=== PATIENT | female | born 1965 | race Caucasian/White ===

== ENCOUNTER → 2017-10-31 17:07 | Outpatient (CLI) | payer BC, SELFPAY ==
[2017-11-12 12:20] LABS: HPV Reflexed? NOT INDICATED
== END ==
PROVIDERS: Family Provider Internal Medicine; PCP Internal Medicine; Visit Provider Obstetrics & Gynecology
DX: Z12.4 Encounter for screening for malignant neoplasm of cervix (principal)
CPT/HCPCS: 88175; G0145

== ENCOUNTER 2018-06-14 06:13 | Day surgery (SDC) | payer BC, SELFPAY ==
[2018-06-14 06:53] VITALS: BP 119/91; PULSE 82; RESP 14; TEMP 36.9; O2SAT 96; BMI 33.3
--- NOTE | 2018-06-14 07:22 | PCM.HP.STD ---
Problem List (1) Screening for intestinal cancer Status: Acute History of Present Illness Date of Admission: 06/14/18 The patient is a 52 year old F who has a family history of colon cancer in her father. Her most recent colonoscopy was 5 years ago. She states that she has not personally had any polyps or masses. She denies bright red blood per rectum or melena. No change in bowel habits. Past Medical History Allergies No Known Allergies Allergy (Verified 06/14/18 06:50) Home Medications: Ambulatory Orders Medication Instructions Recorded Hydrochlorothiazide [Hctz] 25 mg PO DAILY 06/11/15 Lisinopril [Zestril] 20 mg PO DAILY 06/11/15 Cyanocobalamin [Vitamin B12] 1,000 mcg PO DAILY@0800 06/10/18 Multivitamin with Minerals 1 each PO DAILY 06/10/18 [Multiple Vitamin] Pyridoxine HCl (Vitamin B6) 250 mg PO DAILY 06/10/18 [Vitamin B-6] Smoking Status: Current every day smoker Tobacco Use: Cigarettes Review of Systems Constitutional: Denies: Anorexia HEENT: Denies: Difficulty Swallowing Cardiovascular: Denies: Chest Pain Respiratory: Denies: Cough Gastrointestinal: Denies: Abdominal Pain Endocrine: Denies: Change in Body Habitus VTE Information - Inpt Only VTE Present on Admission: No Patient Problems: Active and Suspected Problems Screening for intestinal cancer (Acute) - Physical Exam General: Alert, Oriented x3, Cooperative Neck: Supple Lungs: Clear to auscultation Cardiovascular: Regular rate, Regular Rhythm Abdomen: Bowel Sounds Present, Soft, Non Tender Extremities: No Calf Tenderness Psych/Mental Status: Normal Affect Vital Signs Temp Pulse Resp BP Pulse Ox 98.4 F 82 14 119/91 H 96 06/14/18 06:53 06/14/18 06:53 06/14/18 06:53 06/14/18 06:53 06/14/18 06:53 Oxygen Delivery Method Room Air Weight: 188 lb Body Mass Index (BMI) 33.3 Assessment/Plan All Active Problems Screening for intestinal cancer (Acute) I recommend a screening colonoscopy based upon family history. She is aware of the technique, benefits, risks and alternatives of colonoscopy with possible biopsy or polypectomy as indicated. She has had an opportunity to ask and have questions answered. She presents via open access. We will proceed as noted. Chente Hartley M.D., F.A.C.S.
[2018-06-14 07:44] VITALS: BP 105/63; BP 111/66; BP 119/91; BP 143/113; BP 143/81; PULSE 78; RESP 16; TEMP 36.8; O2SAT 100; O2SAT 97; O2SAT 98
--- NOTE | 2018-06-14 07:47 | OP.ENDO_ITS ---
Patient Name: Sabina Aguillon Procedure Date: 06/14/2018 7:20 AM Date of : 1965 Age: 52 Procedure: Colonoscopy Indications: Family history of colon cancer in a first-degree relative Providers: Chente Hartley MD Referring MD: Emily Quiroga Medicines: Midazolam 4 mg IV, Meperidine 100 mg IV Patient Profile: Last Colonoscopy: 5 years ago. Complications: No immediate complications. Procedure: Pre-Anesthesia Assessment: - Prior to the procedure, a History and Physical was performed, and patient medications and allergies were reviewed. The patient's tolerance of previous anesthesia was also reviewed. The risks and benefits of the procedure and the sedation options and risks were discussed with the patient. All questions were answered, and informed consent was obtained. Prior Anticoagulants: The patient has taken no previous anticoagulant or antiplatelet agents. ASA Grade Assessment: II - A patient with mild systemic disease. After reviewing the risks and benefits, the patient was deemed in satisfactory condition to undergo the procedure. After I obtained informed consent, the scope was passed under direct vision. Throughout the procedure, the patient's blood pressure, pulse, and oxygen saturations were monitored continuously. The pediatric colonoscope was introduced through the anus and advanced to the cecum, identified by appendiceal orifice and ileocecal valve. The colonoscopy was performed without difficulty. The patient tolerated the procedure well. The quality of the bowel preparation was good. The appendiceal orifice was photographed. Moderate Sedation: Moderate (conscious) sedation was personally administered by the endoscopist. The following parameters were monitored: oxygen saturation, heart rate, blood pressure, and response to care. Total physician intraservice time was 15 minutes. Scope In: 7:33:40 AM Scope Withdrawal Time 0 hours 6 minutes 25 seconds Scope Out: 7:43:05 AM Total Procedure Duration Time 0 hours 9 minutes 25 seconds Findings: Hemorrhoids were found on perianal exam. Multiple diverticula were found in the entire colon. The exam was otherwise without abnormality. Impression: - Hemorrhoids found on perianal exam. - Diverticulosis in the entire examined colon. - The examination was otherwise normal. - No specimens collected. Recommendation: - Discharge patient to home. - Resume previous diet. - Continue present medications. - Repeat colonoscopy in 5 years for surveillance. Procedure Code(s): --- Professional --- 75823, Colonoscopy, flexible; diagnostic, including collection of specimen(s) by brushing or washing, when performed (separate procedure) 27761, 59, Moderate sedation services provided by the same physician or other qualified health healthcare consultant performing the diagnostic or therapeutic service that the sedation supports, requiring the presence of an independent trained observer to assist in the monitoring of the patient's level of consciousness and physiological status; initial 15 minutes of intraservice time, patient age 5 years or older CPT copyright 2017 [employer]. All rights reserved. The codes documented in this report are preliminary and upon tooth inspector review may be revised to meet current compliance requirements. Chente Hartley MD 06/14/2018 7:47:32 AM This report has been signed electronically. Number of Addenda: 0 Note Initiated On: 06/14/2018 7:20 AM
[2018-06-14 07:50] VITALS: BP 101/68; BP 119/91; PULSE 75; RESP 16; O2SAT 95
[2018-06-14 07:55] VITALS: BP 103/66; BP 119/91; PULSE 75; RESP 16; O2SAT 96
[2018-06-14 07:59] VITALS: BP 106/68; BP 119/91; PULSE 73; RESP 16; TEMP 36.7; O2SAT 98
[2018-06-14 08:22] VITALS: BP 119/91
== END 2018-06-14 08:22 | disposition home or self-care (01) ==
LOC: EN 06:13 → AC 06:16
PROVIDERS: Family Provider Internal Medicine; PCP Internal Medicine; Referring Provider Surgery; Visit Provider Surgery
PROC: 0DJD8ZZ Inspection of Lower Intestinal Tract, Via Natural or Artificial Opening Endoscopic (ICD-10-PCS; CPT 45378; principal; 2018-06-14 07:25)
DX: Z12.11 Encounter for screening for malignant neoplasm of colon (principal); K57.90 Diverticulosis of intestine, part unspecified, without perforation or abscess without bleeding; K64.9 Unspecified hemorrhoids; F17.210 Nicotine dependence, cigarettes, uncomplicated; Z79.899 Other long term (current) drug therapy; Z80.0 Family history of malignant neoplasm of digestive organs
CPT/HCPCS: 45378; 99152; 99153; J7120

== ENCOUNTER → 2019-04-18 07:46 | Outpatient (CLI) | payer BC, SELFPAY ==
--- NOTE | 2019-04-18 07:49 | BI_ITS ---
MAMMOGRAPHY - BILATERAL SCREENING REASON FOR EXAM: Female, 53 years old. Routine annual screening examination. PERTINENT HISTORY: Aunt with breast cancer. TECHNIQUE: Digital bilateral breast kathy (3D mammographic acquisition) in the CC and MLO projections. 2-D mediolateral oblique (MLO) and craniocaudad (CC) views of both breasts were obtained. CAD: Full Field Digital Mammography with Computer Added Detection was performed. COMPARISON: Comparison is made with prior outside examination dated April 15, 2018. FINDINGS: Breast Composition: The breasts are heterogeneously dense, which may obscure small masses. There are no dominant masses or suspicious calcifications. No other significant abnormalities are identified. There has been no significant change since the prior study. BI/SCREEN MAMM (CAD) W/KATHY BILAT IMPRESSION: Stable bilateral screening mammogram. Yearly follow-up mammogram recommended. (A) ASSESSMENT CATEGORY: BIRADS Category 1: Negative. A letter regarding these results will be sent to the patient by the facility within 30 days. Approximately 10% of breast cancers are not detected by mammography. A normal mammogram should not delay biopsy of a clinically suspicious abnormality. [id number] Electronically Signed: Ayan Jensen, at 9:32 EST , Service support ,
== END ==
PROVIDERS: Family Provider Internal Medicine; PCP Internal Medicine; Referring Provider Obstetrics & Gynecology; Visit Provider Obstetrics & Gynecology
DX: Z12.31 Encounter for screening mammogram for malignant neoplasm of breast (principal)
CPT/HCPCS: 77063; 77067

== ENCOUNTER → 2019-12-01 | Outpatient (CLI) | payer BC, SELFPAY ==
[2019-12-05 14:56] LABS: HPV Reflexed? NOT INDICATED
== END | disposition home or self-care (01) ==
LOC: LABSPEC 14:38
PROVIDERS: PCP Internal Medicine; Visit Provider Obstetrics & Gynecology
DX: Z12.4 Encounter for screening for malignant neoplasm of cervix (principal)
CPT/HCPCS: 88175; G0145

== ENCOUNTER → 2020-05-26 07:25 | Outpatient (CLI) | payer BC, SELFPAY ==
--- NOTE | 2020-05-26 07:11 | BI_ITS ---
MAMMOGRAPHY - BILATERAL SCREENING REASON FOR EXAM: Female, 54 years old. Routine annual screening examination. PERTINENT HISTORY: Aunt with breast cancer. TECHNIQUE: Digital bilateral breast kathy (3D mammographic acquisition) in the CC and MLO projections. 2-D mediolateral oblique (MLO) and craniocaudad (CC) views of both breasts were obtained. CAD: Full Field Digital Mammography with Computer Added Detection was performed. COMPARISON: Comparison is made with prior examination dated 04/18/2019. FINDINGS: Breast Composition: The breasts are heterogeneously dense, which may obscure small masses. There are no dominant masses or suspicious calcifications. No other significant abnormalities are identified. There has been no significant change since the prior study. BI/SCREEN MAMM (CAD) W/KATHY BILAT IMPRESSION: Stable bilateral screening mammogram. Yearly follow-up mammogram recommended. (A) ASSESSMENT CATEGORY: BIRADS Category 1: Negative. A letter regarding these results will be sent to the patient by the facility within 30 days. Approximately 10% of breast cancers are not detected by mammography. A normal mammogram should not delay biopsy of a clinically suspicious abnormality. [id number] Electronically Signed: Ayan Jensen, at 8:22 EST , Service support ,
== END ==
PROVIDERS: PCP Internal Medicine; Referring Provider Obstetrics & Gynecology; Visit Provider Obstetrics & Gynecology
DX: Z12.31 Encounter for screening mammogram for malignant neoplasm of breast (principal)
CPT/HCPCS: 77063; 77067

== ENCOUNTER → 2021-05-31 12:44 | Outpatient (CLI) | payer BC, SELFPAY ==
--- NOTE | 2021-05-31 12:47 | BI_ITS ---
MAMMOGRAPHY - BILATERAL SCREENING 3-D TOMOSYNTHESIS REASON FOR EXAM: Female, 55 years old. SCREENING PERTINENT HISTORY: No significant family history. TECHNIQUE: 2-D mammograms and 3-D Tomosynthesis of the breast (s) were performed. CAD was performed. COMPARISON: 05/26/2020 FINDINGS: The breast composition is heterogeneously dense that can obscure small breast masses. Scattered benign calcifications are seen. No dense spiculated masses or suspicious microcalcifications are identified. No architectural distortion is identified. There is no skin thickening or retraction. There has been no significant change since the prior study. BI/SCRN MAMM (CAD)W/KATHY BILAT IMPRESSION: No mammographic signs of malignancy. Routine yearly mammograms recommended. ASSESSMENT CATEGORY: BIRADS Category 1: Negative. A letter regarding these results will be sent to the patient by the facility within 30 days. FOLLOW UP RECOMMENDATION: Yearly follow up mammogram recommended. (A) Approximately 10% of breast cancers are not detected by mammography. A normal mammogram should not delay biopsy of a clinically suspicious abnormality. Electronically Signed: Lobo London MD at 15:19 EST Tel , Service support ,
== END ==
PROVIDERS: PCP Internal Medicine; Referring Provider Obstetrics & Gynecology; Visit Provider Obstetrics & Gynecology
DX: Z12.31 Encounter for screening mammogram for malignant neoplasm of breast (principal)
CPT/HCPCS: 77063; 77067

== ENCOUNTER 2022-06-19 14:30 | Emergency (ER) | payer BC, SELFPAY ==
[2022-06-19 14:32] VITALS: BP 185/103; PULSE 86; RESP 16; TEMP 36.3; O2SAT 100; BMI 32.4
--- NOTE | 2022-06-19 14:33 | EKG12_ITS ---
Test Reason : Blood Pressure : / mmHG Vent. Rate : 080 BPM Atrial Rate : 080 BPM P-R Int : 164 ms QRS Dur : 078 ms QT Int : 398 ms P-R-T Axes : 045 032 049 degrees QTc Int : 459 ms Normal sinus rhythm Normal ECG Confirmed by MARY MCKENNA, NISSA ([id number]), makeup editor LOLY MONCADA ([id number]) on 06/20/2022 9:43:33 AM Referred By: Confirmed By:NISSA HERNANDEZ MD
[2022-06-19 15:10] LABS: Absolute Lymphocyte Count 2.63 X10^3/uL (0.83-4.51); Absolute Neutrophil Count 5.1 X10^3/uL (2.0-7.7); Basophil# 0.05 X10^3/uL; Basophil% 0.6 % (0-1); Eosinophil# 0.16 X10^3/uL; Eosinophils% 1.8 % (0-5); Hematocrit 47.3 % (37-47); Lymphocyte # 2.63 X10^3/ul (0.83-4.51); Lymphocyte % 30.1 % (19-41); Mean Corp Hgb Conc 31.7 g/dL (32-36); Mean Corpuscular Hgb 27.3 pg (27.0-32.0); Mean Corpuscular Volume 86.2 fL (81-99); Mean Platelet Vol. 10.1 fl (6.2-12.0); Monocyte# 0.76 X10^3/uL; Monocyte% 8.7 % (0-10); NRBC Flagged by Analyzer 0 % (0-5); Neutrophil # 5.12 X10^3/uL (2.7-7.7); Neutrophil % 58.5 % (47-70); Platelet Count 331 K/mm3 (150-450); RBC Distribution Width CV 14.7 % (11.6-14.6); RBC Distribution Width SD 46.7 fl (35.1-43.9); Red Blood Count 5.49 M/mm3 (4.2-5.4); White Blood Count 8.8 K/mm3 (4.4-11.0)
[2022-06-19 15:23] LABS: Anion Gap 6 (5-15); BUN 18 mg/dL (7-18); BUN/Creat Ratio 24.8 RATIO (10-20); Calcium,Total 9.2 mg/dL (8.5-10.1); Chloride 105 mmol/L (98-107); Creatinine, Serum 0.73 mg/dL (0.55-1.02); EST Glomerular Filtration Rate 89 mL/min (>60); Est Glom Filt Rate - Afr Amer 107 mL/min (>60); Estimated Creatinine Clearance 72.88 ml/min; Glucose 131 mg/dL (74-106); Potassium 3.6 mmol/L (3.5-5.1); Sodium Level 140 mmol/L (136-145); Troponin-I HS < 3 pg/mL (3.0-54.0)
--- NOTE | 2022-06-19 16:10 | RAD_ITS ---
EXAM: XR CHEST, 1 VIEW CLINICAL INDICATION: chest pain TECHNIQUE: Frontal view of the chest. This report was created using Ditt[employer] report generation technology. COMPARISON: None. FINDINGS: LUNGS AND PLEURAL SPACES: Normal. No consolidation or edema. No pneumothorax. No effusion. HEART: Normal heart size. MEDIASTINUM: No mediastinal or hilar mass. BONES/JOINTS: No acute abnormality. SOFT TISSUES: Normal. RAD/Chest 1 View (Portable) IMPRESSION: No acute cardiopulmonary disease. Electronically Signed: Savage Rvias MD at 16:25 EST ,
--- NOTE | 2022-06-19 16:14 | EDS_ITS ---
HPI History of Present Illness Chief Complaint: General Illness Detail of Chief Complaint: Intermittent transient paresthesia LUE, transient chest pain, pain LLE Informant: patient and spouse/S.O. Onset/Context/Timing Onset: Days (Onset June 16. The left lower extremity pain has been present for a while.) Context: Sudden Onset Timing: Intermittent Quality: Tingling left upper extremity and pain left lower extremity and pain chest Location: Previously documented Current Severity: Gone Maximum Severity: Moderate Worsened by: Nothing Relieved by: Nothing Associated Symptoms Associated Symptoms: No other symptoms Narrative Narrative: Patient is a 56-year-old woman who presents with a constellation of symptoms which include intermittent chest pain since Sunday with no associated symptoms, intermittent paresthesia left upper extremity lasting 30 seconds with no loss of motor function, problems with balance or coordination or any other neurologic symptoms. The left leg pain has been present for some time. There is no alleviating, precipitating or exacerbating factors for any of her symptoms. She presented because she had a change in her face when she was eating with her daughter who is a nurse. Patient denies fever, chills but does endorse night sweats for the past month. She states she is going to change in life . She denies weight gain or weight loss. She denies double vision, blurred vision loss of vision. She denies trouble speech or swallowing. She denies use of upper or lower extremities. She denies orthopnea, PND, dyspnea on exertion. [facility] Medical History HTN (hypertension) Home Medications hydrochlorothiazide 25 mg tablet 25 mg PO DAILY 06/11/15 [History Last Taken Unknown] lisinopril 20 mg tablet 20 mg PO DAILY 06/11/15 [History Last Taken 06/14/18] cyanocobalamin (vitamin B-12) 500 mcg tablet 1,000 mcg PO DAILY@0800 06/10/18 [History Last Taken Unknown] multivitamin with minerals (Multiple Vitamin-Minerals tablet) 1 ea PO DAILY 06/10/18 [History Last Taken Unknown] pyridoxine (vitamin B6) 250 mg tablet (Vitamin B-6) 250 mg PO DAILY 06/10/18 [History Last Taken Unknown] Allergy/AdvReac Type Severity Reaction Status Date / Time No Known Allergies Allergy Verified 06/19/22 14:33 Social History (Updated 06/19/22 @ 17:[address] Brendan Prado MD) household members: spouse Smoking Status: Current every day smoker tobacco type: cigarettes substance use type: does not use ROS ROS ED Constitutional Constitutional ED: Denies chills, fever(s), subjective, sweats or weight loss Eyes Eyes: Denies blurry vision, change in vision or diplopia ENT ENT ED: Denies ear pain, rhinorrhea or sore throat Cardiovascular Cardiovascular: Reports chest pain; Denies orthopnea, palpitations, paroxysmal nocturnal dyspnea or racing heartbeat Respiratory/Chest Respiratory/Chest: Denies cough, dyspnea, dyspnea on exertion, orthopnea or paroxysmal nocturnal dyspnea Gastrointestinal Gastrointestinal: Denies abdominal pain, constipation, melena, nausea or vomiting Genitourinary Genitourinary ED: Denies dysuria, hematuria or urinary frequency Musculoskeletal Musculoskeletal: Denies arthralgias, back pain, myalgias or neck pain Integumentary Denies abscess, Abrasions or rash Neurologic Neurologic: Reports paresthesias; Denies headache(s) or weakness Psychiatric Psychiatric: Denies anxiety or depression Hematologic/Lymphatic Hematologic/Lymphatic: Reports systems reviewed and no addt'l complaints, except as documented EXAM Physical Exam Const Vital Signs: 06/19/22 14:32 06/19/22 15:51 06/19/22 15:51 Temperature 97.4 F L Temperature Source Temporal Pulse Rate 86 Respiratory Rate 16 Respiratory Pattern Normal Blood Pressure 185/103 H Blood Pressure Mean 130 Pulse Ox 100 Oxygen Delivery Method Room Air Room Air Positive well nourished, well developed and obese General Appearance ED: well developed and NAD; Negative for pallor Nutritional Appearance: obese HEENT Reports moist mucous membranes HEENT Narrative: Head is atraumatic normocephalic. Ears normal. TMs normal. Nares patent. Uvula midline. No deviation with protrusion. Normal posterior pharynx. Eyes PERRL and EOMs intact bilaterally Eyes Narrative: There is no nystagmus. General Eye ED: Negative for pale conjunctiva or scleral icterus Neck no lymphadenopathy, supple and no JVD Neck Narrative: There is no clear bruit right or left. Resp normal respiratory effort and clear to auscultation bilaterally Cardio regular rate, regular rhythm, S1 normal heart sound, S2 normal heart sound and no murmurs GI normal to inspection, nondistended, normoactive bowel sounds, non-tender, non- distended and no masses; Negative for hepatosplenomegaly Back/Spine no CVA tenderness Cervical Spine: Negative for cervical spine tenderness Thoracic Spine / Upper Back: Negative for thoracic spinal tenderness Lumbar Spine / Lower Back: Negative for lumbar spinal tenderness Extremity normal to inspection General Extremety ED: Negative for edema or tenderness General Extremity: Negative for edema Neuro oriented x3, CN's II-XII intact bilaterally and no sensory deficits noted Neuro Narrative: DTR 2+ bicep, brachialis, tricep, patella and ankle. There is no clonus. There is no Babinski sign. There is no dysmetria. Sensorium / Orientation: alert Motor Exam: strength 5/5 throughout Psych mental status grossly normal Skin no rashes or lesions noted, no wounds and skin turgor normal General Skin Exam: elasticity normal; Negative for jaundice or pallor MDM MDM MDM Narrative Medical decision making narrative: Presents with constellation of symptoms. Uncertain what this may be. Work-up was undertaken to rule out cardiac ischemia, electrolyte abnormality. With transient paresthesia of the left upper extremity per days and a nonfocal neurologic exam CT of the head was not obtained. Nurse protocol was initiated. CBC was obtained to assess for polycythemia vera, elevated platelet count. Electrolyte panel to assess for hyponatremia, hypo or hyperkalemia. Records from the were for cancer screening. Records from the were for hypercholesterolemia. Patient is presently on lisinopril and hydrochlorothiazide. She has not had her dose change recently. Since patient is asymptomatic presently and has no evidence of endorgan dysfunction she should follow-up with her doctor for blood pressure monitoring. Lab Data Attestation: I reviewed the patient's lab results. Lab results narrative: CBC is unremarkable. Basic metabolic panel unremarkable. Troponin less than 3 which she has 100% negative predictive value for cardiac disease. Labs: Laboratory Results - last 24 hr 06/19/22 06/19/22 14:57 14:57 WBC 8.8 RBC 5.49 H Hgb 15.0 Hct 47.3 H MCV 86.2 MCH 27.3 MCHC 31.7 L RDW Std Deviation 46.7 H RDW Coeff of Pj 14.7 H Plt Count 331 MPV 10.1 Immature Gran % (Auto) 0.300 Neut % (Auto) 58.5 Lymph % (Auto) 30.1 [place] % (Auto) 8.7 Eos % (Auto) 1.8 Baso % (Auto) 0.6 Absolute Neuts (auto) 5.1 Absolute Lymphs (auto) 2.63 Nucleated RBC % 0 Sodium 140 Potassium 3.6 Chloride 105 Carbon Dioxide 29.0 Anion Gap 6 BUN 18 Creatinine 0.73 Estim Creat Clear Calc 72.88 Est GFR (MDRD) Af Amer 107 Est GFR (MDRD) Non-Af 89 BUN/Creatinine Ratio 24.8 H Glucose 131 H Calcium 9.2 Troponin I High Sens < 3 L Radiography Chest X-Ray - ED: 1 View and Read by ED Physician (Single view portable chest x- ray is independently interpreted by nm at 1613 as negative. Cardiac silhouette and size normal. Perihilar region normal. Lung parenchyma normal. Osseous trucks are normal.) Diagnostic Testing: Clinical Impression(s) from Imaging Studies Chest X-Ray 06/19/22 16:10 IMPRESSION: No acute cardiopulmonary disease. Electronically Signed: Savage Rivas MD at 16:25 EST , EKG Initial EKG: Attestation: I personally reviewed and interpreted this EKG as follows: Interpretation: Sinus Rhythm (Ventricular rate 80. EKG is normal. MT interval 264 ms. QS duration 78 ms. QT durations are 98 ms. [place] is normal.) Discharge Plan Triage Chief Complaint: General Illness ED Provider: Brendan Prado Dx/Rx/DC Orders Clinical Impression: Intermittent chest pain, Paresthesia of left upper extremity, Pain of left lower extremity, Accelerated essential hypertension Instructions: ED Chest Pain, Noncardiac, ED Hypertension, Established, ED Paraesthesias Prescriptions: No Action lisinopril 20 MG tablet 20 mg PO DAILY hydrochlorothiazide 25 MG tablet 25 mg PO DAILY cyanocobalamin (vitamin B-12) 500 MCG tablet 1,000 mcg PO DAILY@0800 multivitamin with minerals [Multiple Vitamin-Minerals] 1 EACH tablet 1 ea PO DAILY pyridoxine (vitamin B6) [Vitamin B-6] 250 MG tablet 250 mg PO DAILY Primary Care Provider: Emily Quiroga Referrals: Emily Quiroga MD [Primary Care Provider] - 1 Week Disposition Disposition: Home, Self Care
[2022-06-19 17:29] VITALS: BP 137/81; PULSE 78; RESP 16; O2SAT 99
== END 2022-06-19 17:45 | disposition home or self-care (01) ==
PROVIDERS: Emergency Provider Emergency Medicine; PCP Internal Medicine; Visit Provider Emergency Medicine
DX: R07.9 Chest pain, unspecified (principal); R20.2 Paresthesia of skin; M79.605 Pain in left leg; I10 Essential (primary) hypertension; F17.210 Nicotine dependence, cigarettes, uncomplicated; E66.9 Obesity, unspecified
CPT/HCPCS: 71045; 80048; 84484; 85025; 93005; 99284; A4216

== ENCOUNTER → 2022-07-10 | Outpatient (CLI) | payer BC, SELFPAY ==
--- NOTE | 2022-07-10 13:48 | BI_ITS ---
MAMMOGRAPHY - BILATERAL SCREENING REASON FOR EXAM: Female, 56 years old. Routine annual screening examination. PERTINENT HISTORY: Aunt with breast cancer. TECHNIQUE: Digital bilateral breast kathy (3D mammographic acquisition) in the CC and MLO projections. 2-D mediolateral oblique (MLO) and craniocaudad (CC) views of both breasts were obtained. CAD: Full Field Digital Mammography with Computer Added Detection was performed. COMPARISON: Comparison is made with prior study dated 05/31/2021 and 05/26/2020. FINDINGS: Breast Composition: The breasts are heterogeneously dense, which may obscure small masses. There are no dominant masses or suspicious calcifications. No other significant abnormalities are identified. There has been no significant change since the prior study. BI/SCRN MAMM (CAD)W/KATHY BILAT IMPRESSION: Stable bilateral screening mammogram. Yearly follow-up mammogram recommended. (A) ASSESSMENT CATEGORY: BIRADS Category 1: Negative. A letter regarding these results will be sent to the patient by the facility within 30 days. Approximately 10% of breast cancers are not detected by mammography. A normal mammogram should not delay biopsy of a clinically suspicious abnormality. [id number] Electronically Signed: Ayan Jensen MD at 14:48 EST ,
== END | disposition home or self-care (01) ==
LOC: OPBI 13:47
PROVIDERS: PCP Internal Medicine; Referring Provider Internal Medicine; Visit Provider Internal Medicine
DX: Z12.31 Encounter for screening mammogram for malignant neoplasm of breast (principal)
CPT/HCPCS: 77063; 77067

== ENCOUNTER → 2022-12-25 | Outpatient (CLI) | payer BC, SELFPAY ==
[2022-12-29 16:09] LABS: HPV APTIMA, High Risk Negative (Negative)
== END | disposition home or self-care (01) ==
LOC: LABSPEC 15:07
PROVIDERS: PCP Internal Medicine; Referring Provider Registered Nurse; Visit Provider Registered Nurse
DX: Z12.4 Encounter for screening for malignant neoplasm of cervix (principal)
CPT/HCPCS: 87624; 88175; G0145

== ENCOUNTER → 2023-08-07 | Outpatient (CLI) | payer BC, SELFPAY ==
--- NOTE | 2023-08-07 15:16 | BI_ITS ---
MAMMOGRAPHY - BILATERAL SCREENING 3-D TOMOSYNTHESIS REASON FOR EXAM: Female, 57 years old. annual PERTINENT HISTORY: No significant family history. TECHNIQUE: 2-D mammograms and 3-D Tomosynthesis of the breast (s) were performed. CAD was performed. COMPARISON: 07/09/2022 FINDINGS: The breast composition is composed of scattered fibroglandular density. Scattered benign calcifications are seen. No dense spiculated masses or suspicious microcalcifications are identified. No architectural distortion is identified. There is no skin thickening or retraction. There has been no significant change since the prior study. BI/SCRN MAMM (CAD)W/KATHY BILAT IMPRESSION: No mammographic signs of malignancy. Routine yearly mammograms recommended. ASSESSMENT CATEGORY: BIRADS Category 1: Negative. A letter regarding these results will be sent to the patient by the facility within 30 days. FOLLOW UP RECOMMENDATION: Yearly follow up mammogram recommended. (A) Approximately 10% of breast cancers are not detected by mammography. A normal mammogram should not delay biopsy of a clinically suspicious abnormality. Electronically Signed: Lobo London MD at 17:25 EST ,
== END | disposition home or self-care (01) ==
LOC: OPBI 15:16
PROVIDERS: PCP Internal Medicine; Referring Provider Registered Nurse; Visit Provider Registered Nurse
DX: Z12.31 Encounter for screening mammogram for malignant neoplasm of breast (principal)
CPT/HCPCS: 77063; 77067

== ENCOUNTER 2023-08-20 10:22 | Emergency (ER) | payer BC, SELFPAY ==
[2023-08-20 10:23] VITALS: BP 180/87; PULSE 93; RESP 16; TEMP 35.3; O2SAT 100; BMI 51.5
--- NOTE | 2023-08-20 10:57 | EDS_ITS ---
HPI History of Present Illness Chief Complaint: Other, Pain/Inj Detail of Chief Complaint: Bleeding from right fifth finger Informant: patient Narrative Narrative: Patient presents secondary to recurrent bleeding from her right fifth finger. She states just along her nail she has an area that will bleed recurrently. About once a year she has to have it cauterized. She is asking a referral to a specialist to have this ultimately fixed. She has had no recent injury. [facility] Medical History (Updated 08/20/23 @ 11:[address] Apoorva Blanton MD) GERD (gastroesophageal reflux disease) Hemorrhoid HTN (hypertension) Home Medications hydrochlorothiazide 25 mg tablet 25 mg PO DAILY 06/11/15 [History Last Taken Unknown] lisinopril 20 mg tablet 20 mg PO DAILY 06/11/15 [History Last Taken 06/14/18] cyanocobalamin (vitamin B-12) 500 mcg tablet 1,000 mcg PO DAILY@0800 06/10/18 [History Last Taken Unknown] multivitamin with minerals (Multiple Vitamin-Minerals tablet) 1 ea PO DAILY 06/10/18 [History Last Taken Unknown] pyridoxine (vitamin B6) 250 mg tablet (Vitamin B-6) 250 mg PO DAILY 06/10/18 [History Last Taken Unknown] sucralfate 1 gram tablet 1 g PO BID 10/05/22 [History Last Taken Unknown] ascorbate calcium (vitamin C) 500 mg tablet 500 mg PO DAILY 12/25/22 [History Last Taken Unknown] biotin 1 mg capsule 1 mg PO DAILY 12/25/22 [History Last Taken Unknown] colesevelam 3.75 gram oral powder packet (WelChol) 3,750 mg PO DAILY 12/25/22 [History Last Taken Unknown] echinacea 500 mg capsule 500 mg PO BID 12/25/22 [History Last Taken Unknown] pantoprazole 40 mg tablet,delayed release 40 mg PO DAILY 12/25/22 [History Last Taken Unknown] Allergy/AdvReac Type Severity Reaction Status Date / Time No Known Allergies Allergy Verified 08/20/23 10:25 Family History Mother Diabetes CVA (cerebral vascular accident) Father Hypertension Colon cancer Large B-cell lymphoma CVA (cerebral vascular accident) Surgical History S/P cholecystectomy Social History household members: spouse Smoking Status: Current every day smoker tobacco type: cigarettes alcohol intake: current details: occasionally substance use type: does not use caffeine: Yes what type of physical activity do you participate in: walking and aerobics frequency: 3-4 times per week seatbelt use: always do you feel safe at home: Yes additional social history: - Aparna MCFARLANE ROS ED Constitutional Constitutional ED: Denies chills or fever(s) ENT ENT ED: Denies sore throat Cardiovascular Cardiovascular: Denies chest pain Respiratory/Chest Respiratory/Chest: Reports cough; Denies dyspnea Gastrointestinal Gastrointestinal: Denies abdominal pain Musculoskeletal Musculoskeletal: Denies back pain or extremity pain Integumentary Reports other Details: Finger abrasion ; Denies Abrasions or rash Neurologic Neurologic: Denies headache(s) or weakness Psychiatric Psychiatric: Denies anxiety or depression Endocrine Endocrinology: Denies polydipsia or polyuria Hematologic/Lymphatic Hematologic/Lymphatic: Reports other Details: Recurrent bleeding right fifth finger Allergic/Immunologic Allergic/Immunologic ED: Denies lip swelling or urticaria EXAM Physical Exam Const Vital Signs: 08/20/23 10:23 Temperature 95.6 F L Temperature Source Temporal Pulse Rate 93 Respiratory Rate 16 Blood Pressure 180/87 H Blood Pressure Mean 118 Pulse Ox 100 Oxygen Delivery Method Room Air Positive well nourished and well developed General Appearance ED: well developed HEENT Reports moist mucous membranes Eyes EOMs intact bilaterally Chest Wall inspection of chest normal Resp normal respiratory effort Cardio regular rate and regular rhythm Extremity Extremity Narrative: Patient has a small, 2 mm laceration/skin tear along the border of her right fifth fingernail. Active bleeding noted. This is controlled with proximal pressure. Full range of motion of the digit without difficulty. Normal sensation. MDM MDM MDM Narrative Medical decision making narrative: Pressure is held just proximal to the wound. Wound is cleansed and silver nitrate sticks used to cauterize the lesion. Surgifoam was then placed over the wound with a pressure dressing. She is holding her hand and elevation. Wound is reassessed. She has not had any bleeding through the Surgifoam. Dressing is reapplied. Patient will be referred to plastic surgery for follow- up. She will call the office this afternoon for follow-up. Return instructions given. Discharge Plan Triage Chief Complaint: Other, Pain/Inj ED Provider: Apoorva Blanton Dx/Rx/DC Orders Clinical Impression: Recurrent bleeding Instructions: First Aid: Bleeding Prescriptions: No Action pantoprazole 40 mg tablet,delayed release (DR/EC) 40 mg PO DAILY ascorbate calcium (vitamin C) 500 mg tablet 500 mg PO DAILY echinacea 500 mg capsule 500 mg PO BID Rx Instructions: administer with meals colesevelam [WelChol] 3.75 gram powder in packet 3,750 mg PO DAILY Rx Instructions: must dilute powder in liquid before taking biotin 1 mg capsule 1 mg PO DAILY sucralfate 1 gram tablet 1 g PO BID lisinopril 20 MG tablet 20 mg PO DAILY hydrochlorothiazide 25 MG tablet 25 mg PO DAILY cyanocobalamin (vitamin B-12) 500 MCG tablet 1,000 mcg PO DAILY@0800 multivitamin with minerals [Multiple Vitamin-Minerals] 1 EACH tablet 1 ea PO DAILY pyridoxine (vitamin B6) [Vitamin B-6] 250 MG tablet 250 mg PO DAILY Primary Care Provider: Emily Quiroga Referrals: Emily Quiroga MD [Primary Care Provider] - Nicolette Rocha MD [Med Staff - Active Staff] - As soon as possible Disposition Disposition: Home, Self Care
[2023-08-20] MEDS: Silver Nitrate (BKC) 1 EACH TOPICAL (11:33)
[2023-08-20 11:35] VITALS: BP 164/84; PULSE 87; RESP 14; TEMP 36.4; O2SAT 97
== END 2023-08-20 11:37 | disposition home or self-care (01) ==
PROVIDERS: Emergency Provider Emergency Medicine; PCP Internal Medicine; Visit Provider Emergency Medicine
DX: R23.3 Spontaneous ecchymoses (principal); F17.210 Nicotine dependence, cigarettes, uncomplicated
CPT/HCPCS: 99282

== ENCOUNTER → 2024-08-25 | Outpatient (CLI) | payer BC, SELFPAY ==
--- NOTE | 2024-08-25 12:29 | BI_ITS ---
EXAM: SCRN MAMM (CAD)W/KATHY BILAT 08/25/2024 CLINICAL HISTORY: F, Age 58 y/o , SCREENING TECHNIQUE: Bilateral Diagnostic digital breast tomosynthesis with 2D and 3D images. Computer aided detection. COMPARISON: Prior exam(s) dated 08/07/1999 and 07/10/2022. FINDINGS: TISSUE DENSITY: The breast tissue is composed of scattered area of fibroglandular density. Bilateral Breast Mammographic Findings: There are no suspicious masses, suspicious clustered microcalcifications, architectural distortion or secondary signs of malignancy identified in either breast. There are partially obscured stable isodense masses in both breast. Benign-appearing round microcalcifications are seen in both breasts. BI/SCRN MAMM (CAD)W/KATHY BILAT IMPRESSION: Right Breast: BIRADS 2 BENIGN FINDING. Left Breast: BIRADS 2 BENIGN FINDING. OVERALL FINAL ASSESSMENT: BIRADS 2 BENIGN FINDING. RECOMMENDATION: Routine annual follow-up in 1 Year A letter with findings and recommendations will be mailed to the patient. Reading Location: [id number]
== END | disposition home or self-care (01) ==
LOC: OPBI 12:27
PROVIDERS: PCP Internal Medicine; Referring Provider Internal Medicine; Visit Provider Internal Medicine
DX: Z12.31 Encounter for screening mammogram for malignant neoplasm of breast (principal)
CPT/HCPCS: 77063; 77067

== ENCOUNTER → 2025-01-05 | Outpatient (CLI) | payer BC, SELFPAY ==
--- NOTE | 2025-01-05 14:33 | US_ITS ---
PROCEDURE: PELVIC W/ TRANSVAGINAL 01/05/2025 REASON FOR EXAM: POSTMENOPAUSAL BLEEDING TECHNIQUE: PELVIC W/ TRANSVAGINAL COMPARISON: None FINDINGS: Measurements: Uterus: 7.9 cm x 4.7 cm x 4.7 cm with a volume of 91.1 mL Endometrial Thickness: 5 mm. Trace amount of fluid is seen within the endometrial canal. Right Ovary: 2.7 cm x 2.1 cm x 1.4 cm with a volume of 4.31 mL. Left Ovary: 2.5 cm x 1.7 cm x 1.5 cm with a volume of 3.37 mL. Uterus: Uterine fibroids. The larger measures 3 cm x 2.6 cm 2.6 cm. Endometrium: Endometrium is thickened measuring 5 mm. Right ovary: Normal size and echotexture. Left ovary: Normal size and echotexture. Other: No large pelvic mass identified. US/Pelvic w/ Transvaginal IMPRESSION: Fibroid uterus. Endometrial thickening. Reading Location: [id number]
== END | disposition home or self-care (01) ==
LOC: US 14:28
PROVIDERS: PCP Internal Medicine; Referring Provider Obstetrics & Gynecology; Visit Provider Obstetrics & Gynecology
DX: N95.0 Postmenopausal bleeding (principal)
CPT/HCPCS: 76830; 76856

== ENCOUNTER 2025-01-26 16:18 | Outpatient (CLI) | payer BC, SELFPAY ==
--- NOTE | 2025-01-26 15:15 | EMB_PTH ---
PATIENT: MARIELLA JACOBO LOC: [facility] U#:[id number] AGE/SX: 59/F ROOM: RE01/26/[address]: Dr. Apoorva Do DO : 1965 BED: DIS: 01/26/2025 SPEC #: [id number] RECD: 01/26/25 16:41 STATUS: ALCIDES HALE #: [id number] TAMIKA: 01/26/25 15:[address]: Apoorva Do DEPT: SURGICAL PATHOLOGY RECD BY: Leonid Lloyd ENTERED: 01/27/25 09:13 SP TYPE: ENDOM BX/C KIA DR: Dr. Emily Quiroga MD Tissues: A - Endometrium, NOS Procedures: Surgery Specimen Level IV HEADER OPERATION: Endometrial biopsy PRE-OP DIAGNOSIS: Post menopausal bleeding TISSUE SUBMITTED: A- Endometrial lining MICROSCOPIC DIAGNOSIS A. Endometrium, biopsy: - Scant endocervical and squamous epithelium with acute inflammation. - No endometrium is seen in these sections. MICROSCOPIC DESCRIPTION Slides are reviewed. GROSS DESCRIPTION A. Received in formalin labeled with the patient's name and date of is a 1.7 x 0.8 x 0.4 cm aggregate of mucoid material and ram tissue. Entirely submitted in 1 cassette. MS 01/27/2025 CPT:22311
== END 2025-01-26 23:59 | disposition home or self-care (01) ==
LOC: LABSPEC 16:20
PROVIDERS: PCP Internal Medicine; Referring Provider Obstetrics & Gynecology; Visit Provider Obstetrics & Gynecology
DX: N95.0 Postmenopausal bleeding (principal)
CPT/HCPCS: 88305

== ENCOUNTER 2025-02-17 10:43 | Day surgery (SDC) | payer BC, SELFPAY ==
[2025-02-17] VITALS (7 sets, daily range): BP systolic 109–148; BP diastolic 74–79; PULSE 60–80; RESP 16; TEMP 36.2–36.6; O2SAT 98–99; BMI 31.6
[2025-02-17] MEDS: Lactated Ringers 1,000 ML 15 ML IV (11:21)
[2025-02-17 11:33] LABS: Hematocrit 45.8 % (37-47); Hemoglobin 15.0 g/dL (12.0-15.0); Mean Corp Hgb Conc 32.8 g/dL (32-36); Mean Corpuscular Volume 83.1 fL (81-99); Mean Platelet Vol. 9.8 fl (6.2-12.0); Platelet Count 304 K/mm3 (150-450); RBC Distribution Width CV 14.9 % (11.6-14.6); RBC Distribution Width SD 45.5 fl (35.1-43.9); Red Blood Count 5.51 M/mm3 (4.2-5.4); White Blood Count 8.5 K/mm3 (4.4-11.0)
--- NOTE | 2025-02-17 11:39 | PCM.PRE.AN2 ---
ASA Classification* ASA Classification ASA Classification: 2 Assessment & Plan Anesthesia* Anesthesia Assessment Anesthesia Assessment: Discussed sedation and/or anesthesia options, risks, benefits, and alternatives with patient/parents/legal guardian/POA. Questions invited. The patient/parents/legal guardian/POA seems to understand and agrees to proceed with anesthesia plan. Reviewed the physical assessment, medical history, allergy history and patient home medications list prior to surgery/procedure/anesthetic and documented any changes. Performed airway and anesthesia risk assessments. Anesthesia Type Anesthesia Type: MAC History Source History Obtained from:: Patient and Chart Anesthesia Focused Assessment* Temperature: 97.9 F Pulse Rate: 80 Blood Pressure: 148/79 Respiratory Rate: 16 Pulse Ox: 99 Oxygen Delivery Method: Room Air Airway Assessment Mouth opens: >3 cm Mallampati Score: II Teeth Condition: Caps/Crowns (Patient has a couple crowns. They are tight.) Neck Range of motion (ROM): Full ROM Labs Anesthesia Preop lab: CBC WBC 8.5 K/mm3 (4.4-11.0) 02/17/25 11:22 02/17/25 RBC 5.51 M/mm3 (4.2-5.4) H 02/17/25 11:22 02/17/25 Hgb 15.0 g/dL (12.0-15.0) 02/17/25 11:22 02/17/25 Hct 45.8 % (37-47) 02/17/25 11:22 02/17/25 Plt Count 304 K/mm3 (150-450) 02/17/25 11:22 02/17/25 CHEMISTRY Potassium 3.6 mmol/L (3.5-5.1) 06/19/22 14:57 06/19/22 Sodium 140 mmol/L (136-145) 06/19/22 14:57 06/19/22 BUN 18 mg/dL (7-18) 06/19/22 14:57 06/19/22 Creatinine 0.73 mg/dL (0.55-1.02) 06/19/22 14:57 06/19/22 Glucose 131 mg/dL (74-106) H 06/19/22 14:57 06/19/22 COAG Pre-Assessment Diagnosis/Proposed Procedure Planned Operative Procedure(s): HYSTEROSCOPY D&C Anesthesia History Anesthesia History - clinical nurse reviewer: Anesthesia History - clinical nurse reviewer Hx Hospitalization No 02/04/25 08:20 Any Problems With Anesthesia No 02/04/25 08:20 Cholinesterase deficiency No 02/04/25 08:20 You/Your Family Experience No 02/04/25 08:20 fever (hyperthermia) with Relationship Recent Exposure to Contagious No 02/17/25 11:08 Disease Does patient have nerve No 02/04/25 08:20 stimulator Patient instructed to have device shut off --Does patient have Pacemaker No 02/17/25 11:08 or ICD? When Was Last Pacemaker Check QUESTION #4 FULL TEXT: You/Your Family Experience fever (hyperthermia) with Anesthesia Last Oral Intake Last Oral intake: Last Oral Intake NPO since 17:30 02/17/25 11:08 Meds taken in AM with sips of Yes 02/17/25 11:08 water? Meds patient instructed to take am of surgery Any additional information?: Yes Meds taken in AM with sips of water?: Yes PONV PONV - clinical nurse reviewer: PONV - clinical nurse reviewer Female Yes 02/04/25 08:20 HX of Motion Sickness No 02/04/25 08:20 HX of N/V After Surgery No 02/04/25 08:20 Non-Smoker No 02/04/25 08:20 Duration of Surgery greater No 02/04/25 08:20 than 60 minutes Number of Risk Factors 1 02/04/25 08:20 PONV Score Low Risk 02/04/25 08:20 Height & Weight Height & Weight: Anesthesia: Height & Weight Height 5 ft 3 in 02/17/25 11:08 Weight: 81.1 kg 02/17/25 11:08 Body Mass Index (BMI) 31.6 02/17/25 11:08 Respiratory Assessment Respiratory Assessment - clinical nurse reviewer: Respiratory Tract Infection Hx - clinical nurse reviewer Hx Respiratory Tract Infection No 02/04/25 08:20 STOP Sleep Apnea STOP Sleep Apnea - clinical nurse reviewer: STOP Sleep Apnea - clinical nurse reviewer Hx Hypertension Yes: CONTROLLED WITH MED 02/04/25 08:20 Hx Sleep Apnea No 02/04/25 08:20 CPAP No 12/03/23 10:33 BIPAP No 12/03/23 10:33 Do you snore loudly (louder Yes 02/04/25 08:20 than talking or can be heard Do you often feel tired/ No 02/04/25 08:20 fatigued/ sleepy during daytime? Has anyone observed you stop No 02/04/25 08:20 breathing during sleep? STOP Results Positive 02/04/25 08:20 QUESTION #5 FULL TEXT : Do you snore loudly (louder than talking or can be heard through closed doors)? Tobacco Use History Tobacco Use History - clinical nurse reviewer: Tobacco Use History - clinical nurse reviewer Tobacco Use Smoking Status Current every day smoker 02/04/25 08:20 Hx Tobacco Use Yes 02/04/25 08:20 Years Smoking Packs Smoked per Day Smoking Cessation Date was within the last 15 years Hx Smoking Cessation Date Hx Smoking Cessation Counseling Any additional information?: Yes Smoking Status: Current every day smoker (Patient smoked today.) Hematologic Medial History Hematologic Hx - clinical nurse reviewer: Hematologic Medical Hx - police manager Hx of Blood Transfusion No 02/04/25 08:20 Hx of Transfusion in last 3 No 02/04/25 08:20 Months Date of Last Transfusion (if within last 3 months) Ever experience any problems No 02/04/25 08:20 with transfusion(s)? Specify any problems Hx of Preganancy in last 3 No 02/04/25 08:20 Months Nurse Filling Out Transfusion DSCHRIBER 02/04/25 08:20 & Questions: Date: 02/04/25 02/04/25 08:20 Time: 08:21 02/04/25 08:20 Patient unable to answer at this time (ie. confused, unrespo /Reproduction History /Reproductive History - clinical nurse reviewer: /Reproductive Hx- clinical nurse reviewer Hx Now No 02/04/25 08:20 Gestational Age (in weeks): EDC: Hx Hx Para Hx Section SAB No 02/04/25 08:20 Active Medications Active Medications: Current Medications Generic Name Dose Route Start Last Admin Trade Name Freq PRN Reason Stop Dose Admin Lactated Ringer's 1,000 mls @ 15 mls/hr 02/17/25 11:00 02/17/25 11:21 IV 15 mls/hr .Q48H MO Administration PFSH Medical History Wears glasses Post-menopausal Alcohol use Redness of skin Back pain Injury of head and neck Shortness of breath on exertion Smoker History of pain when walking GERD (gastroesophageal reflux disease) Hemorrhoid HTN (hypertension) Home Medications ?Medication ?Instructions ?Recorded ?Last Taken ?Type hydrochlorothiazide 25 mg tablet 25 mg PO DAILY 06/11/15 Unknown History multivitamin with minerals 1 ea PO DAILY 06/10/18 Unknown History (Multiple Vitamin-Minerals tablet) sucralfate 1 gram tablet 1 g PO QHS 10/05/22 Unknown History biotin 1 mg capsule 1 mg PO DAILY 12/25/22 Unknown History pantoprazole 40 mg tablet,delayed 40 mg PO QHS 12/25/22 Unknown History release cholecalciferol (vitamin D3) 50 50 mcg PO QDAY 12/29/24 Unknown History mcg (2,000 unit) capsule potassium gluconate 595 mg (99 mg) 595 mg PO QDAY 12/29/24 Unknown History tablet zinc acetate 50 mg (zinc) capsule 50 mg PO QDAY 12/29/24 Unknown History calcium carbonate 600 mg PO DAILY 02/04/25 Unknown History cholestyramine (with sugar) 4 gram 1 ea PO QODAY 02/04/25 Unknown History powder for susp in a packet lisinopril 40 mg tablet 40 mg PO DAILY 02/04/25 02/17/25 08:00 History mecobalamin (vitamin B12) 500 mcg 500 mcg PO DAILY 02/04/25 Unknown History chewable tablet pyridoxine (vitamin B6) 100 mg 100 mg PO DAILY 02/04/25 Unknown History tablet (Vitamin B-6) quercetin 500 mg capsule 500 mg PO DAILY 02/04/25 Unknown History Allergy/AdvReac Type Severity Reaction Status Date / Time No Known Allergies Allergy Verified 02/17/25 11:07 Family History Mother Diabetes CVA (cerebral vascular accident) Father Hypertension Colon cancer Large B-cell lymphoma CVA (cerebral vascular accident) Surgical History Hx of colonoscopy History of esophagogastroduodenoscopy (EGD) History of endometrial ablation Hx of tubal ligation S/P cholecystectomy Social History household members: spouse Smoking Status: Current every day smoker tobacco type: cigarettes alcohol intake: current details: occasionally substance use type: does not use caffeine: Yes what type of physical activity do you participate in: walking and aerobics frequency: 3-4 times per week seatbelt use: always do you feel safe at home: Yes additional social history: - Aparna Review of Systems (Anesthesia) ROS Narrative System reviewed and no additional complaints, except as documented.
--- NOTE | 2025-02-17 12:15 | HP.PCM_ITS ---
History and Physical Date of Admission: 02/17/25 Intake Vital Signs 01/26/2514:58 02/04/2508:04 02/04/2508:06 Height 5 ft 3 in 5 ft 3 in 5 ft 3 in Weight: 182 lb 6 oz BMI 32.3 BP 142/80 H Intake Visit Reasons: Hysteroscopy D&C/failed EMB Independent Distributor Required: No Is patient in pain?: No Allergies No Known Allergies Allergy (Verified 02/03/25 08:04) Medications ?Medication ?Instructions ?Recorded ?Confirmed ?Type hydrochlorothiazide 25 mg tablet 25 mg PO DAILY 06/11/15 02/03/25 History multivitamin with minerals 1 ea PO DAILY 06/10/18 02/03/25 History (Multiple Vitamin-Minerals tablet) sucralfate 1 gram tablet 1 g PO BID 10/05/22 02/03/25 History biotin 1 mg capsule 1 mg PO DAILY 12/25/22 02/03/25 History pantoprazole 40 mg tablet,delayed 40 mg PO DAILY 12/25/22 02/03/25 History release lisinopril 20 mg tablet 40 mg PO DAILY 01/25/24 02/03/25 History ascorbate calcium (vitamin C) 500 500 mg PO QDAY 12/29/24 02/03/25 History mg tablet cholecalciferol (vitamin D3) 50 50 mcg PO QDAY 12/29/24 02/03/25 History mcg (2,000 unit) capsule colestipol 1 gram tablet 1 g PO ONCE 12/29/24 02/03/25 History potassium gluconate 595 mg (99 mg) 595 mg PO QDAY 12/29/24 02/03/25 History tablet zinc acetate 50 mg (zinc) capsule 50 mg PO QDAY 12/29/24 02/03/25 History Post menopausal: No Patient : No : No PFSH Medical History GERD (gastroesophageal reflux disease) Hemorrhoid HTN (hypertension) Surgical History S/P cholecystectomy Family History Mother Diabetes CVA (cerebral vascular accident)Father Hypertension Colon cancer Large B-cell lymphoma CVA (cerebral vascular accident) Social History household members: spouse Smoking Status: Current every day smoker tobacco type: cigarettes alcohol intake: current details: occasionally substance use type: does not use caffeine: Yes what type of physical activity do you participate in: walking and aerobics frequency: 3-4 times per week seatbelt use: always do you feel safe at home: Yes additional social history: - Aparna HPI Hysteroscopy D&C/failed EMB Details: MARIELLA JACOBO is a 59 year old who presents for a preoperative evaluation. She is scheduled for a hysteroscopy D&C due to failed office biopsy. This was being performed for pmb. She has a history of ablation. She is tearful today about her mom being at [facility] with complications from stroke. History 2 Elective abortions Hx Para 2 Spontaneous abortions Hx # Term Pregnancies Ectopic pregnancies Hx # Pregnancies Multiple births # of living children Past Pregnancies Del. Date Name GA/Weeks Outcome Route Bth Weight Gen Labor Lgth Anesthesia Del [facility] Provider FOB Unknown Nicole Unknown Karie ROS Const ROS Unobtainable: All systems reviewed & are unremarkable except as noted in H Resp Resp: Reports system reviewed and no additional complaints, except as documented; Denies cough GI GI: Reports as per HPI Psych Psych: Reports system reviewed and no additional complaints, except as documented Exam Const General: cooperative, healthy appearing, comfortable and no acute distress Resp Effort & Inspection: normal respiratory effort Skin General: no rashes or lesions noted Psych Appearance: grossly normal Speech and Movement: speech and movement normal Coding Level of Care Code Off vis,est,level 4 Diagnoses History of tubal ligation Z98.51 History of endometrial ablation Z98.890 Postmenopausal bleeding N95.0 Assessment and Plan Assessment and Plan (1) History of tubal ligation: Status: Acute (2) History of endometrial ablation: Status: Acute (3) Postmenopausal bleeding: Status: Acute Plan After discussing the patient's diagnosis and treatment plan options, patient wishes to proceed with surgical management. I have discussed with the patient the risks, benefits, and alternatives of the procedure which include but are not limited to risks of anesthesia, bleeding, infection, possible damage to bowel, bladder, or surrounding vasculature which could lead to additional surgery to evaluate any complications. Patient agrees to procedure and wishes to proceed. ACOG/uptodate references given for additional information regarding procedure. plan for hysteroscopy D&C on .
--- NOTE | 2025-02-17 12:16 | DCINST_ITS ---
Discharge Instructions DC O2, CPAP, BIPAP needs Home O2 Discharge instructions: No Dressing / Incision Discharge Activity: Return to Normal Activity, May Shower and May Take a Tub Bath (after 1 week) May resume sexual activity in: 1-2 weeks Weight Bearing Status: Weight bearing as tolerated Lifting Restrictions: none Dressing / Incision Call your doctor if you observe: Fever of 101 or Higher, Using more than 1 pad per hour, Shortness of breath and Uncontrolled pain Follow Up Care Please Follow Up With: Apoorva Do DO When: Call [phone] to schedule appointment. Test Results: Test results from this visit will be discussed in further detail at your follow- up appointment, if applicable. Discharge Plan Admission Primary Reason for Your Visit: dilation and curettage Attending Provider: Apoorva Do Primary Care Provider: Emily Quiroga Instructions Print Language: Spanish Discharge Orders/Prescriptions Prescriptions: New ibuprofen 800 mg tablet 800 mg PO Q8H PRN (Reason: pain) Qty: 10 0RF Continued pantoprazole 40 mg tablet,delayed release (DR/EC) 40 mg PO QHS biotin 1 mg capsule 1 mg PO DAILY sucralfate 1 gram tablet 1 g PO QHS zinc acetate 50 mg (zinc) capsule 50 mg PO QDAY potassium gluconate 595 mg (99 mg) tablet 595 mg PO QDAY cholecalciferol (vitamin D3) 50 mcg (2,000 unit) capsule 50 mcg PO QDAY hydrochlorothiazide 25 MG tablet 25 mg PO DAILY Multiple Vitamin-Minerals 1 EACH tablet 1 ea PO DAILY cholestyramine (with sugar) 4 gram powder in packet 1 ea PO QODAY lisinopril 40 mg tablet 40 mg PO DAILY quercetin 500 mg capsule 500 mg PO DAILY calcium carbonate 600 mg calcium (1,500 mg) tablet 600 mg PO DAILY pyridoxine (vitamin B6) [Vitamin B-6] 100 mg tablet 100 mg PO DAILY mecobalamin (vitamin B12) 500 mcg tablet,chewable 500 mcg PO DAILY Referrals / Follow Up: Emily Quiroga MD [Primary Care Provider] - Disposition Disposition (needs filled in before D/C Order can be placed): Home, Self Care
[2025-02-17] MEDS: Midazolam 2 MG/2 ML Syringe IV (12:45)
[2025-02-17] MEDS: Lidocaine 1% (20 ml mdv) 20 ML Vial (13:04)
--- NOTE | 2025-02-17 13:10 | OP.PCM_ITS ---
Multi Select Codes Urinary/Genital Urinary/Genital CPT Codes: 76178 Hysteroscopy, diagnostic Operative Report (Standard) Operative Information Date of Procedure: 02/17/25 Pre-Operative Diagnosis: postmenopausal bleeding, stenotic cervix Post-Operative Diagnosis: postmenopausal bleeding, stenotic cervix Surgery/Procedure Performed: hysteroscopy ore feeder: No Type of Anesthesia: MAC and Topical Anesth RN Documented Start/Stop Times: Operation Date: 02/17/25 12:30 Case Time Into Pre-Op 02/17/25 10:51 Out of Pre-Op 02/17/25 12:41 Procedure Start Time: 13:01 Procedure Stop Time: 13:11 Select all DRAINS/GRAFTS/IMPLANTS that apply: None Estimated Blood Loss: none Specimen collected: No Description of surgery: Reason for surgery; status post ablation, cervical stenosis, postmenopausal bleeding, and failed office EMB The patient was brought to the operating room and placed in a dorsal supine position. Mac anesthesia was administered. Legs were placed in stirrups and her vaginal area was prepped and draped in the usual sterile fashion. A single t oothed tenaculum was use to grasp the anterior lip of the cervix. The cervix was injected with 1% Lodine without epinephrine. The cervix was fist dilated with the smallest dilator, working up. A Lexi forceps device was use to further open the cervix. A uterine sound was not possible due to stenosis at the superior aspect of the cervix. A hysteroscope was used to attempt hydrodissection. All aspects of the cervix were examined under the hysteroscope and no cervical opening was identified to enter the uterus. The procedure was then aborted. All instruments were removed from the cervix and vagina. Surgical Findings: stenotic cervix. Complications Complications: No Admit VTE Documentation VTE Present on Admission: No VTE Mechan Device Prophylaxis: [facility] [place] VTE Pharm Prophylaxis ordered?: No
--- NOTE | 2025-02-17 13:23 | PCM.POST.ANE ---
Anesthesia: Postop Eval I Current Vital Signs Temperature: 97.4 F Pulse Rate: 70 Blood Pressure: 116/75 Respiratory Rate: 16 Pulse Ox: 98 Oxygen Delivery Method: Room Air Assessment Airway patent: Yes Spontaneous unlabored respirations: Yes Mental status: Awake and Calm nausea: No Vomiting: No Anesthesia Complication: No Fluid Hydration Crystalloid volume administer (ml): 600 Total IV fluid infused: 600 Progress Note Anesthesia document: Postop Eval 1 completed: Yes
--- NOTE | 2025-02-17 17:04 | POSTOPAN2_ITS ---
Anesthesia Postop Eval I Sum Postop Eval Completion status Anesthesia document: Postop Eval 1 completed: Yes Anesthesia Postop Eval I Summary Anesthesia Postop Eval I Summary: Anesthesia Postop Eval I: Assessment Summary Airway patent Yes 02/17/25 13:24 [email or web address] Spontaneous unlabored Yes 02/17/25 13:24 [email or web address] respirations Mental status Awake,Calm 02/17/25 13:24 [employer] CONCR[employer]E [email or web address] nausea No 02/17/25 13:24 [employer] CONCR[employer]E [email or web address] Vomiting No 02/17/25 13:24 [employer] CONCRETE [email or web address] Anesthesia Postop Eval I: Fluid Summary Crystalloid volume administer 600 02/17/25 13:24 [employer] CONCR[employer]E [email or web address] (ml) Colloids volume administered ( ml) Blood Product volume administered (ml) Total IV fluid infused 600 02/17/25 13:24 [employer] CONCRETE [email or web address] Anesthesia Postop Eval I: Summary Notes Anesthesia Complication No 02/17/25 13:24 [employer] CONCRETE [email or web address] Anesthesia Complication Comment: Post-operative progress note Anesthesia: Postop Eval II Evaluation Mental status: Awake and Calm Pain Level: 1 nausea: No Vomiting: No Complications Anesthesia Complication: No
--- NOTE | 2025-02-17 17:04 | PCM.POSTANE2 ---
Anesthesia Postop Eval I Sum Postop Eval Completion status Anesthesia document: Postop Eval 1 completed: Yes Anesthesia Postop Eval I Summary Anesthesia Postop Eval I Summary: Anesthesia Postop Eval I: Assessment Summary Airway patent Yes 02/17/25 13:24 SITE SAFETY [email or web address] Spontaneous unlabored Yes 02/17/25 13:24 SITE SAFETY [email or web address] respirations Mental status Awake,Calm 02/17/25 13:24 SITE SAFETY [email or web address] nausea No 02/17/25 13:24 SITE SAFETY [email or web address] Vomiting No 02/17/25 13:24 SITE SAFETY [email or web address] Anesthesia Postop Eval I: Fluid Summary Crystalloid volume administer 600 02/17/25 13:24 SITE SAFETY [email or web address] (ml) Colloids volume administered ( ml) Blood Product volume administered (ml) Total IV fluid infused 600 02/17/25 13:24 SITE SAFETY [email or web address] Anesthesia Postop Eval I: Summary Notes Anesthesia Complication No 02/17/25 13:24 SITE SAFETY [email or web address] Anesthesia Complication Comment: Post-operative progress note Anesthesia: Postop Eval II Evaluation Mental status: Awake and Calm Pain Level: 1 nausea: No Vomiting: No Complications Anesthesia Complication: No
== END 2025-02-17 14:01 | disposition home or self-care (01) ==
LOC: SDC 10:44 → AC 10:48
PROVIDERS: PCP Internal Medicine; Referring Provider Obstetrics & Gynecology; Visit Provider Obstetrics & Gynecology
PROC: 0UDB8ZZ Extraction of Endometrium, Via Natural or Artificial Opening Endoscopic (ICD-10-PCS; CPT 58558; principal; 2025-02-17 12:20)
DX: N88.2 Stricture and stenosis of cervix uteri (principal); N95.0 Postmenopausal bleeding; K21.9 Gastro-esophageal reflux disease without esophagitis; F17.210 Nicotine dependence, cigarettes, uncomplicated; I10 Essential (primary) hypertension; Z63.6 Dependent relative needing care at home; Z98.890 Other specified postprocedural states; Z53.09 Procedure and treatment not carried out because of other contraindication; Z79.899 Other long term (current) drug therapy
CPT/HCPCS: 58555; 00952; 85027; 86850; 86900; 86901; J2405